=== PATIENT | female | born 1995 | race Hispanic/Latino ===

== ENCOUNTER 2019-11-01 21:54 | Inpatient (IN) | payer BC, MEDICAID ==
[~2019-11-01] VITALS: Ht 154.9 cm; Wt 70.8 kg
[~2019-11-01 21:54] MED LIST: DOCU-116 PO; IBUP-2077 PO; PNV1TABL77 PO
[2019-11-01] MEDS ORDERED: LACTATED RINGERS 1000ML 1,000 ML IV PRN (21:55)
[2019-11-01] MEDS ORDERED: OXYTOCIN-LR 20 UNITS/1000 ML 1,000 ML IV SCH (22:00)
[2019-11-01] MEDS ORDERED: AMPICILLIN 2GM+NS 100ML 100 ML IV SCH (22:00)
[2019-11-01 22:46] LABS: APPEARANCE,URINE Clear (CLEAR); BILIRUBIN,URINE Negative (NEGATIVE); COLOR,URINE Yellow (YELLOW); GLUCOSE, URINE (UA) Negative (NEGATIVE); KETONES,URINE Negative (NEGATIVE); LEUKOCYTE ESTERASE ,URINE Small (NEGATIVE); NITRATE,URINE Negative (NEGATIVE); OCCULT BLOOD,URINE Negative (NEGATIVE); PH,URINE 6.5 (5.0-8.0); PROTEIN,URINE Negative (NEGATIVE)
[2019-11-01 22:58] LABS: HEMATOCRIT 33.7 % (36-48); MEAN CORPUSCULAR HEMOGLOBIN 30.5 pg (27.0-33.0); MEAN CORPUSCULAR HGB CONC 33.8 g/dL (32.0-36.0); MEAN CORPUSCULAR VOLUME 90.1 fL (79-99); PLATELET COUNT (AUTO) 319 K/uL (130-400); RED BLOOD CELL COUNT(AUTO) 3.74 MIL/uL (4.00-5.50); WHITE BLOOD COUNT (AUTO) 11.1 K/uL (4.8-10.8)
[2019-11-01 23:01] LABS: RBC,URINE 0-1 /HPF (0-1)
[2019-11-01 23:02] LABS: BACTERIA,URINE Few /HPF (None Seen); MUCUS,URINE Few LPF (None Seen)
[2019-11-01 23:03] LABS: CALCIUM OXALATE CRYSTALS,UR Moderate /LPF (None Seen)
[2019-11-02] MEDS: AMPICILLIN 1GM+NS 50ML 50 ML IV SCH ×2 (02:47→07:00)
[2019-11-02] MEDS ORDERED: OXYTOCIN 10 USP UNITS/ML 20 UNIT in LACTATED RINGERS 1000ML 1,000 ML IV SCH (04:00)
[2019-11-02] MEDS ORDERED: LACTATED RINGERS 500 ML 500 ML IV PRN (08:00)
[2019-11-02] MEDS ORDERED: ROPIVACAINE 0.2% 100ML VIAL 100 ML EP SCH (08:00)
[2019-11-02] MEDS ORDERED: EPHEDRINE SULFATE 50 MG/ML AMPULE IVP PRN (08:00)
[2019-11-02] MEDS ORDERED: NALOXONE HCL 0.4 MG/1 ML ML IV PRN (08:00)
[2019-11-02] MEDS ORDERED: ACETAMINOPHEN 325 MG TAB PO PRN (09:45)
[2019-11-02] MEDS ORDERED: DIPH,PERTUSS(ACELL),TET VAC/PF 0.5 ML VIAL IM PRN (09:45)
[2019-11-02] MEDS ORDERED: LANOLIN 30GM OINTMENT TP PRN (09:45)
[2019-11-02] MEDS ORDERED: BENZOCAINE/LANOLIN/ALOE VERA 60 ML AEROSOL TP PRN (09:45)
[2019-11-02] MEDS ORDERED: MEASLES/MUMPS/RUBELLA VACCINE, LIVE 0.5 ML/VIAL SQ PRN (09:45)
[2019-11-02] MEDS ORDERED: OXYTOCIN-LR 20 UNITS/1000 ML 1,000 ML IV SCH (09:45)
[2019-11-02] MEDS ORDERED: ACETAMINOPHEN-CODEINE 300/30MG TAB PO PRN (09:45)
[2019-11-02] MEDS ORDERED: WITCH HAZEL 1 PAD TP PRN (09:45)
--- NOTE | 2019-11-02 10:30 | NUR ---
QBL - 93ML Addendum: 11/02/19 at 1308 by DORA PATEL RN Amended: Links added.
[2019-11-02 10:32] VITALS: BP 115/69
[2019-11-02 11:03] VITALS: BP 119/74
[2019-11-02 11:17] VITALS: BP 118/74
[2019-11-02] MEDS: IBUPROFEN 600 MG TABLET PO PRN ×2 (13:58→20:31)
[2019-11-02 16:15] VITALS: BP 112/76
[2019-11-02 19:30] VITALS: BP 126/77
[2019-11-02] MEDS: DOCUSATE SODIUM 100 MG CAP PO SCH (20:31)
[2019-11-02 23:08] VITALS: BP 108/57
[2019-11-03 03:07] VITALS: BP 112/69
[2019-11-03 07:11] LABS: HEPATITIS Bs ANTIGEN SCREEN P Negative (Negative)
[2019-11-03 07:27] LABS: HEMATOCRIT 32.8 % (36-48); MEAN CORPUSCULAR HEMOGLOBIN 29.6 pg (27.0-33.0); MEAN CORPUSCULAR HGB CONC 32.9 g/dL (32.0-36.0); MEAN CORPUSCULAR VOLUME 89.9 fL (79-99); PLATELET COUNT (AUTO) 305 K/uL (130-400); RED BLOOD CELL COUNT(AUTO) 3.65 MIL/uL (4.00-5.50); RED CELL DISTRIBUTION WIDTH 14.4 % (11.0-15.5); WHITE BLOOD COUNT (AUTO) 12.4 K/uL (4.8-10.8)
[2019-11-03 07:34] VITALS: BP 105/62
[2019-11-03] MEDS: IBUPROFEN 600 MG TABLET PO PRN (09:16)
[2019-11-03] MEDS: DOCUSATE SODIUM 100 MG CAP PO SCH (09:16)
--- NOTE | 2019-11-03 09:48 | NUR ---
HX of ANXIETY Sw met with pt who lives in an apt with her preston Burleson [phone] and their 2 sons, 4 1/2 yro and NB- KAREEM ELIZONDO. Pt and preston both work at [employer] and are independent. Pt has BC of [employer] and WIC. Couple has basic items for NB, including a car seat and Dr Mabry at [facility] will follow baby at al. Pt states she will have help at home at al. Pt reports hx of anxiety dx by Dr Voss 8-9yrs ago. At that time she was in therapy and under psych care with meds and then stopped. Pt restarted having issues with anxiety [address] Abigail Mabry rx anxiety meds, that pt stopped taking after 1 month because she did not like them. Pt states she has learned how to cope and deal with anxiety on her own. Pt denies any recent issues or need for referral or intervention at this time. Pt encouraged to contact PCP kaleigh, if she begins to feel changes in mood or behavior after discharge. Pt voiced understanding. Pt denies any hx of ideations, suicide attempts or post depression. Pt also denies hx of abuse, substance abuse, CPS, legal issues. Addendum: 11/03/19 at [facility] by SANDRA MILLER Amended: Links added.
[2019-11-03 11:41] VITALS: BP 120/78
--- NOTE | 2019-11-03 12:10 | NUR ---
verbal and written discharge instructions given, informed to call MD office for follow up appointment, prescription given, all questions answered, informed to call the doctor for future concerns, pt voiced understanding to all things discussed. Addendum: 11/03/19 at 1300 by DORA PATEL RN Amended: Links added.
--- NOTE | 2019-11-03 12:35 | NUR ---
pt is dismissed in stable condition, brought to private car via wheelchair by linnette Stephensonpcp Addendum: 11/03/19 at 1256 by DORA PATEL RN Amended: Links added.
== END 2019-11-03 12:35 | disposition home or self-care (01) | DRG 807 ==
LOC: LDH 21:54 → WSH 11-02 10:18 → PREOBSVTOIN 11-02 21:54
PROVIDERS: ADMIT Obstetrics & Gynecology; ATTEND Obstetrics & Gynecology
PROC: 10E0XZZ Delivery of Products of Conception, External Approach (ICD-10-PCS; principal; 2019-11-02)
PROC: 3E0R3BZ Introduction of Anesthetic Agent into Spinal Canal, Percutaneous Approach (ICD-10-PCS; 2019-11-02)
PROC: 00HU33Z Insertion of Infusion Device into Spinal Canal, Percutaneous Approach (ICD-10-PCS; 2019-11-02)
DX: O99.824 Streptococcus B carrier state complicating childbirth (principal); Z37.0 Single live birth; Z3A.38 38 weeks gestation of pregnancy
CPT/HCPCS: 36415; 81001; 85027; 86592; 86850; 86900; 86901; 87340; A4314; A4344; A4606; G0378; J0290; J2590; J2795; J7120

== ENCOUNTER 2022-09-05 17:36 | Emergency (ER) | payer BC, MEDICAID ==
[~2022-09-05] VITALS: Ht 154.9 cm; Wt 74.4 kg
[~2022-09-05 17:36] MED LIST changes: -DOCU-116 PO; -IBUP-2077 PO
[2022-09-05 18:16] LABS: APPEARANCE,URINE CLEAR (CLEAR); BILIRUBIN,URINE NEGATIVE (NEGATIVE); COLOR,URINE COLORLESS (YELLOW); GLUCOSE, URINE (UA) NEGATIVE (NEGATIVE); KETONES,URINE NEGATIVE (NEGATIVE); LEUKOCYTE ESTERASE ,URINE NEGATIVE Leu/uL (NEGATIVE); NITRATE,URINE NEGATIVE (NEGATIVE); PROTEIN,URINE NEGATIVE (NEGATIVE); UROBILINOGEN,URINE 0.2 mg/dL (0.2-1.0)
[2022-09-05 18:24] LABS: BACTERIA,URINE RARE /HPF (None Seen); RBC,URINE 0-1 /HPF (0-1); SQUAMOUS EPITHELIAL CELL,UR RARE /HPF (0-2)
[2022-09-05 18:25] LABS: HCG,QUALITATIVE URINE NEGATIVE (NEGATIVE)
[2022-09-05] MEDS ORDERED: KETOROLAC 30MG VIAL (30MG/ML) ONE (18:48)
[2022-09-05 18:52] LABS: HEMATOCRIT 43.4 % (36-48); MEAN CORPUSCULAR HGB CONC 32.9 g/dL (32.0-36.0); MEAN CORPUSCULAR VOLUME 94.1 fL (79-99); RED BLOOD CELL COUNT(AUTO) 4.61 MIL/uL (4.00-5.50); RED CELL DISTRIBUTION WIDTH 12.9 % (11.0-15.5); WHITE BLOOD COUNT (AUTO) 12.1 K/uL (4.8-10.8)
[2022-09-05] MEDS ORDERED: KETOROLAC 30MG VIAL (30MG/ML) IVP ONE (19:00)
[2022-09-05 19:04] LABS: CREATININE 0.5 mg/dL (0.5-1.5)
[2022-09-05 19:07] LABS: ALBUMIN 4.1 g/dL (3.5-5.0); TOTAL PROTEIN, SERUM 7.7 g/dL (6.0-8.3)
[2022-09-05 19:57] VITALS: BP 136/76
[2022-09-05] MEDS ORDERED: TAMS-1 PO (20:32)
== END 2022-09-05 20:51 | disposition home or self-care (01) ==
LOC: EDH 17:36
DX: N20.0 Calculus of kidney (principal)
CPT/HCPCS: 99285; 74176; 96374; 80053; 85027; 81001; 81025; 36415; J1885

== ENCOUNTER 2023-09-15 16:17 | Emergency (ER) | payer BC, MEDICAID ==
[~2023-09-15] VITALS: Ht 154.9 cm; Wt 77.1 kg
[~2023-09-15 16:17] MED LIST changes: +TAMS-1 PO
[2023-09-15 16:18] VITALS: BP 130/86; PULSE 75; RESP 16
[2023-09-15] MEDS ORDERED: AMOX1TAB16 PO (17:50)
[2023-09-15] MEDS ORDERED: PRED20TA3 PO (17:50)
[2023-09-15] MEDS ORDERED: IBUP-2070 PO (17:50)
[2023-09-15] MEDS ORDERED: FAMO20TA8 PO (17:50)
[2023-09-15] MEDS: PREDNISONE 20 MG TABLET PO ONE (17:51)
[2023-09-15] MEDS: AMOX/CLAV 875/125MG TAB PO ONE (17:51)
[2023-09-15] MEDS: IBUPROFEN 600 MG TABLET PO ONE (17:52)
== END 2023-09-15 18:01 | disposition home or self-care (01) ==
LOC: EDH 16:17
DX: H60.91 Unspecified otitis externa, right ear (principal)